=== PATIENT | female | born 1965 | race Two or more races ===

== ENCOUNTER 2021-10-01 12:39 | Inpatient (IN) | payer OTHER, SELFPAY ==
--- NOTE | 2021-10-01 | ECG_ITS ---
Test Reason : CP Blood Pressure : / mmHG Vent. Rate : 066 BPM Atrial Rate : 066 BPM P-R Int : 188 ms QRS Dur : 086 ms QT Int : 420 ms P-R-T Axes : 065 -02 030 degrees QTc Int : 440 ms Normal sinus rhythm RSR' or QR pattern in V1 suggests right ventricular conduction delay Otherwise normal ECG No previous ECGs available Referred By: Generic ED Physician Electronically Signed By:BASILIA WEBBER MD
--- NOTE | ~2021-10-01 | MR_ITS ---
EXAMINATION: MR ABDOMEN WITHOUT CONTRAST/MRCP CLINICAL INFORMATION: Abdominal pain, elevated LFTs. Rule out common bile duct stone. COMPARISON: Abdominal ultrasound performed earlier today at 8:[address] abdomen/pelvis dated from 10/01/2021. TECHNIQUE: MR abdomen is performed without gadolinium contrast. 3-D MRCP images were also performed. FINDINGS: LUNG BASES: The visualized lung bases are unremarkable. LIVER, GALLBLADDER, AND BILIARY TREE: There is loss of signal of the liver parenchyma in the out of phase dual echo images, most consistent with hepatic steatosis. Otherwise, the liver is normal in size and shape without focal abnormalities. The CBD is mildly dilated measuring up to 8 mm which is likely related with post cholecystectomy state. There are no intraluminal abnormalities to suspect choledocholithiasis. There is no evidence of obstructive extraluminal lesions. There is no significant intrahepatic biliary ductal dilatation. PANCREAS: No focal lesions. The main pancreatic duct is of normal diameter. SPLEEN: Unremarkable. ADRENAL GLANDS: Unremarkable. KIDNEYS AND URETERS: The kidneys are normal in size and shape. No hydronephrosis. No perinephric stranding. GASTROINTESTINAL TRACT: No bowel obstruction. No ascites or fluid collection. ABDOMINAL WALL: No significant hernia is appreciated. LYMPH NODES: No lymphadenopathy. VASCULAR: Limitedly assessed in the absence of intravenous contrast. The abdominal aorta is of normal diameter. OSSEOUS STRUCTURES: No acute or aggressive osseous abnormalities. MR/MR MRCP IMPRESSION: Mildly dilated CBD is likely related with post cholecystectomy state. No intrahepatic biliary ductal dilatation. No choledocholithiasis or obstructive extraluminal lesions.
--- NOTE | ~2021-10-01 | XR_ITS ---
EXAMINATION: XR CHEST CLINICAL INFORMATION: Chest pain COMPARISON: None TECHNIQUE: Frontal view of the chest was obtained. FINDINGS: No significant abnormality is noted involving the heart, lungs, mediastinum, bony thorax or soft tissues. XR/XR chest 1V IMPRESSION: Unremarkable examination.
--- NOTE | ~2021-10-01 | US_ITS ---
EXAMINATION: US ABDOMEN LIMITED. Duplex Doppler evaluation of the portal/hepatic veins. CLINICAL INFORMATION: Elevated LFTs with abdominal pain. COMPARISON: CT of October 01, 2021 and abdominal ultrasound of October 01, 2021 TECHNIQUE: Real-time imaging of the right upper quadrant abdominal viscera. Real-time ultrasound and Doppler techniques (integrating B-mode 2D vascular images, Doppler spectral analysis and color flow Doppler imaging) were utilized to interrogate the portal venous system FINDINGS: PANCREAS: Head and body unremarkable. Tail is partially obscured by overlying bowel gas. No mass or peripancreatic inflammatory change identified. LIVER: The liver is prominent in size measuring approximately 18 cm in vertical span. There is diffusely increased echogenicity present consistent with fatty infiltration. The liver contour is normal. No focal hepatic lesion. There is no intrahepatic biliary duct dilatation seen. GALLBLADDER: Status post cholecystectomy. COMMON BILE DUCT: Normal in caliber measuring 0.8 cm in diameter. RIGHT KIDNEY: Normal. No hydronephrosis. No renal calculi or focal parenchymal lesions. The kidney measures 11.4 cm in maximum dimension. FREE FLUID: None. Portal veins: Extrahepatic portal vein has hepatopedal flow. Main hepatic vein has hepatopedal flow. Right portal vein has hepatopedal flow. Left portal vein has hepatopedal flow. Hepatic artery: Main hepatic artery has antegrade flow. Right hepatic vein has antegrade flow. Left hepatic vein has antegrade flow. Hepatic veins: Main hepatic vein appears normal. Left hepatic vein appears normal. Right hepatic vein appears normal. Inferior vena cava waveform is normal. Spleen measures 9.2 cm in vertical span. The splenic vein is patent. No varices are appreciated. US/US abdomen limited IMPRESSION: Findings consistent with fatty infiltration of the liver. No evidence of portal vein thrombosis or Budd-Chiari.
--- NOTE | ~2021-10-01 | US_ITS ---
EXAMINATION: US ABDOMEN LIMITED. Duplex Doppler evaluation of the portal/hepatic veins. CLINICAL INFORMATION: Elevated LFTs with abdominal pain. COMPARISON: CT of October 01, 2021 and abdominal ultrasound of October 01, 2021 TECHNIQUE: Real-time imaging of the right upper quadrant abdominal viscera. Real-time ultrasound and Doppler techniques (integrating B-mode 2D vascular images, Doppler spectral analysis and color flow Doppler imaging) were utilized to interrogate the portal venous system FINDINGS: PANCREAS: Head and body unremarkable. Tail is partially obscured by overlying bowel gas. No mass or peripancreatic inflammatory change identified. LIVER: The liver is prominent in size measuring approximately 18 cm in vertical span. There is diffusely increased echogenicity present consistent with fatty infiltration. The liver contour is normal. No focal hepatic lesion. There is no intrahepatic biliary duct dilatation seen. GALLBLADDER: Status post cholecystectomy. COMMON BILE DUCT: Normal in caliber measuring 0.8 cm in diameter. RIGHT KIDNEY: Normal. No hydronephrosis. No renal calculi or focal parenchymal lesions. The kidney measures 11.4 cm in maximum dimension. FREE FLUID: None. Portal veins: Extrahepatic portal vein has hepatopedal flow. Main hepatic vein has hepatopedal flow. Right portal vein has hepatopedal flow. Left portal vein has hepatopedal flow. Hepatic artery: Main hepatic artery has antegrade flow. Right hepatic vein has antegrade flow. Left hepatic vein has antegrade flow. Hepatic veins: Main hepatic vein appears normal. Left hepatic vein appears normal. Right hepatic vein appears normal. Inferior vena cava waveform is normal. Spleen measures 9.2 cm in vertical span. The splenic vein is patent. No varices are appreciated. US/US duplex arterial venous comp IMPRESSION: Findings consistent with fatty infiltration of the liver. No evidence of portal vein thrombosis or Budd-Chiari.
--- NOTE | ~2021-10-01 | US_ITS ---
EXAMINATION: US ABDOMEN LIMITED CLINICAL INFORMATION: Epigastric pain. COMPARISON: None TECHNIQUE: Real-time imaging of the right upper quadrant abdominal viscera. FINDINGS: PANCREAS: The visualized portion of the pancreas head and body are normal, portion of the pancreatic body and tail, not visualized are obscured by bowel gas. LIVER: Diffusely echogenic liver suggesting hepatic steatosis, no ultrasound evidence of focal liver lesion. No intra or extrahepatic biliary dilatation. GALLBLADDER: Gallbladder has been removed. COMMON BILE DUCT: Normal in caliber measuring 0.3 cm in diameter. RIGHT KIDNEY: Normal. No hydronephrosis. No renal calculi or focal parenchymal lesions. The kidney measures 11.1 cm in maximum dimension. FREE FLUID: None. US/US abdomen limited IMPRESSION: Exam somewhat limited due to patient's body habitus. No abdominal ultrasound explanation for patient's pain symptoms, Status post cholecystectomy. Diffusely echogenic liver suggesting hepatic steatosis.
--- NOTE | ~2021-10-01 | CT_ITS ---
EXAMINATION: CT ABDOMEN AND PELVIS WITH CONTRAST CLINICAL INFORMATION: Epigastric pain, nausea and vomiting COMPARISON: None TECHNIQUE: Multidetector volumetric images were obtained from the superior aspect of the liver through the pubic symphysis following administration 85 mL of Omnipaque 350 intravenous contrast. Sagittal and coronal reformatted images were obtained on the technologist's workstation. Oral contrast: No This CT examination was performed using dose optimization techniques as appropriate, variously including the following: *Automated exposure control *Adjustment of mA and/or kV according to patient size (this includes techniques or standardized protocols for targeted exams where dose is matched to indication/reason for exam; i.e. extremities or head) *Use of iterative reconstruction technique DLP: 686 mGy-cm FINDINGS: LUNG BASES: The visualized lung bases are clear. The heart is upper normal in size. LIVER, GALLBLADDER, AND BILIARY TREE: The liver is low in attenuation suggestive of fatty infiltration. No focal lesion is seen. The gallbladder is been removed. There is no biliary duct dilatation. PANCREAS: Unremarkable. SPLEEN: Unremarkable. ADRENAL GLANDS: Unremarkable. KIDNEYS AND URETERS: The kidneys are normal in size, shape, and attenuation. No hydronephrosis, hydroureter, or calculi seen. There is a small 5 mm low-attenuation lesion right lobe of the liver. 2 small to definitively characterize but probably represent small cysts. Follow up indicated. BLADDER: Unremarkable. GASTROINTESTINAL TRACT: The small and large bowel are unremarkable. The appendix is not identified. No inflammatory changes are seen in the right lower quadrant. ABDOMINAL WALL: No significant hernia is appreciated. LYMPH NODES: Normal. VASCULAR: The uterus is enlarged. There is question of a large fibroid in the uterine fundus. The adnexa are unremarkable. PELVIC VISCERA: Unremarkable. OSSEOUS STRUCTURES: Unremarkable. CT/CT abdomen pelvis w con IMPRESSION: Enlarged uterus and probable fundal uterine fibroid. This could be better evaluated with pelvic ultrasound. Fatty liver. Otherwise normal exam.
[2021-10-01 13:17] VITALS: BP 139/79; PULSE 77; RESP 18; TEMP 36.5; O2SAT 98; BMI 35.4
--- NOTE | 2021-10-01 14:21 | ED.CHESTPAIN ---
HPI - Chest Pain General Chief Complaint: Chest Pain Stated Complaint: low blood pressure, chest & abd pain Time Seen by Provider: 10/01/21 14:21 Source: patient and family Mode of arrival: ambulatory Limitations: no limitations History of Present Illness HPI narrative: 56 yo female with HTN notes around 10am she developed epigastric pain with n/v that felt like pressure which radiated to her chest - she sat in [facility] all morning then came here when the pain worsened. She was up all night urinating frequently. No prior episodes of this in the past. Her BP was also below 100 but she cannot state they exact number and her BP was not told to be low at [facility] complaint: chest pain (abdominal pain) Onset (ago): hour(s) (4) Prior episodes: No Onset: during rest Pain location: epigastric Pain radiation: other (chest) Severity: moderate Quality: other (pressure) Relieving factors: nothing Exacerbating factors: eating and palpation Associated symptoms: nausea and vomiting Treatment prior to arrival: none Related Data Home Medications Medication Instructions Recorded Confirmed amlodipine 5 mg tablet 1 tab PO DAILY 10/01/21 10/01/21 calcium carbonate 600 mg calcium 600 mg PO DAILY 10/01/21 10/01/21 (1,500 mg) tablet (Calcium) cholecalciferol (vitamin D3) 25 25 mcg PO DAILY 10/01/21 10/01/21 mcg (1,000 unit) chewable tablet (Vitamin D3) cyanocobalamin (vitamin B-12) 1,000 mcg PO DAILY 10/01/21 10/01/21 1,000 mcg tablet omeprazole 20 mg capsule,delayed 1 cap PO DAILY 10/01/21 10/01/21 release Allergies Allergy/AdvReac Type Severity Reaction Status Date / Time No Known Allergies Allergy Verified 10/01/21 14:32 Review of Systems Review of Systems: Constitutional : No Weight loss, No Fever, No Chills ENT/Mouth : No sore throat, No Rhinorrhea Eyes: No Swelling, No Redness Cardiovascular : pos Chest Pain, No SOB, NoEdema Respiratory : No Cough, No Sputum, No Wheezing Gastrointestinal : Positive Nausea, Positive Vomiting, no Diarrhea, positive abdominal Pain, No Hematochezia, No Melena Genitourinary : pos Dysuria, pos Urinary Frequency, No Hematuria, No Urgency Musculoskeletal : No joint pain, No Myalgias, No Joint Swelling Skin : No Skin Lesions, No rash Neuro : No Weakness, No Numbness, No Dizziness, No Headache Psych : No Anxiety/Panic, No Depression Heme/Lymph: No Bruising, No Lymphadenopathy Endocrine : No Polyuria, No Polydipsia All other systems reviewed and are negative. [facility] Past Medical History Attestation statement: The following information was validated with the patient. Medical History HTN (hypertension) Surgical History (Updated 10/01/21 @ 14:51 by Mechelle Vargas DO) H/O section History of appendectomy Hx of cholecystectomy Social History Social History (Updated 10/01/21 @ 14:51 by Mechelle Vargas DO) Patient Tobacco Use Status: Never used Tobacco Smoked in Last 30 Days: No Use of substances other than those prescribed or required for medical reasons: No Advance Directives: No Advance Directives Information Provided: Yes Physical Exam Vital Signs: Vital Signs: Last Vital Signs Temp 98.6 F 10/01/21 19:22 Pulse 57 10/01/21 19:22 Resp 18 10/01/21 19:22 BP 134/69 10/01/21 19:22 Pulse Ox 98 10/01/21 19:22 Body Mass Index 35.4 Appearance: Alert. Oriented X3. No acute distress. Eyes: Pupils equal, round and reactive to light. ENT: Pharynx normal. Neck: Normal inspection. Neck supple. CVS: Normal heart rate and rhythm. Pulses normal. Chest: ttp along sternum reproduces pain Respiratory: No respiratory distress. Breath sounds normal. Abdomen: Soft and moderate epigastric ttp no rebound or guarding Skin: Skin warm and dry. Normal skin color. Normal skin turgor. Extremities: No lower extremity edema. No calf ttp Neuro: Oriented X 3. No motor deficit. No sensory deficit. Course Course Course Narrative: given rise in LFTs ? passed stone message sent to GI, hepatitis panel sent off, planned admit repeat LFTs 830 coags if stable / improved can DC home per Dr. Napoles since symptoms improved hospitalist aware of possible admission will PO trial patient LFTs increased, will admit for further workup, GI aware, tylenol sent off, no tylenol ingestion - symptoms all started with pain MDM - Chest Pain MDM Narrative Medical decision making narrative: 56 yo female with HTN hx of appendectomy/cholecystectomy comes in with c/o 4 hours of epigastric pain radiating to chest with n/v - no prior episodes of this in the past. At this time labs, CXR, EKG, troponin, IV morphine for pain, CT scan for pancreatitis/mass. Dispo per results and findings. Lab Data Result diagrams: 10/01/21 14:50 10/01/21 14:50 Labs: Lab Results 10/01/21 10/01/21 10/01/21 Range/Units 14:49 14:50 14:50 WBC 12.4 H (4.8-10.8) X10*3/uL RBC 4.85 (4.20-5.50) X10*6/uL Hgb 14.0 (12.0-16.0) g/dl Hct 42.8 (37.0-47.0) % MCV 88.2 (80.0-98.0) fL MCH 28.9 (27.0-33.0) pg MCHC 32.7 (31.0-35.0) g/dl RDW 13.3 (11.0-16.0) % Plt Count 186 (160-400) X10*3/uL MPV 11.6 (9.4-12.3) fL Immature Gran % (Auto) 0.3 (0.0-0.4) % Neut % (Auto) 86.4 H (45-73) % Lymph % (Auto) 8.5 L (20-40) % Christian % (Auto) 4.5 (2-11) % Eos % (Auto) 0.1 (0-4) % Baso % (Auto) 0.2 (0-2) % Lymph # (Auto) 1.1 L (1.2-4.9) X10*3/uL Christian # (Auto) 0.6 (0.1-1.2) X10*3/uL Eos # (Auto) 0.0 (0.0-0.4) X10*3/uL Baso # (Auto) 0.0 (0.0-0.2) X10*3/uL Abs Immat Gran (auto) 0.04 H (0.00-0.03) X10*3/uL Absolute Neuts (auto) 10.67 H (2.0-8.3) x10*3/uL Absolute Nucleated RBC 0.000 (0.0-0.012) X10*3/uL Nucleated RBC % (auto) 0.0 (0.0-0.2) /100WBC Sodium 139 (135-145) mmol/L Potassium 4.0 (3.3-5.1) mmol/L Chloride 103 (96-108) mmol/L Carbon Dioxide 29 (22-29) mmol/L Anion Gap 11 L (12-20) BUN 10 (9-16) mg/dL Creatinine 0.80 (0.5-1.4) mg/dL Estim Creat Clear Calc 85.9 Estimated GFR > 60 Random Glucose 140 H (60-115) mg/dL Lactic Acid (0.5-2.0) mmol/L Calcium 9.5 (8.4-10.2) mg/dL Magnesium 2.2 (1.6-2.6) mg/dL Total Bilirubin 0.9 (0.0-1.0) mg/dL Direct Bilirubin 0.6 H (0.0-0.5) mg/dL AST 421 H (5-31) U/L ALT 304 H (0-31) U/L Alkaline Phosphatase 126 H (39-117) U/L Troponin I High Sens (<3.5-17.0) ng/L Total Protein 7.8 (6.5-8.0) g/dL Albumin 4.6 (3.5-5.0) g/dL Lipase 24 (8-78) U/L Urine Color Urine Appearance Urine pH (5.0-8.0) Ur Specific [place] (1.005-1.025) Urine Protein (NEG-TRACE) MG/DL Urine Glucose (UA) (NEG) MG/DL Urine Ketones (NEG) MG/DL Urine Blood (NEG) Urine Nitrite (NEG) Ur Leukocyte Esterase (NEG) COVID-19 (LAURITA) Negative (Negative) COVID-19 Clin Com See Note 10/01/21 10/01/21 10/01/21 Range/Units 14:50 14:50 17:32 WBC (4.8-10.8) X10*3/uL RBC (4.20-5.50) X10*6/uL Hgb (12.0-16.0) g/dl Hct (37.0-47.0) % MCV (80.0-98.0) fL MCH (27.0-33.0) pg MCHC (31.0-35.0) g/dl RDW (11.0-16.0) % Plt Count (160-400) X10*3/uL MPV (9.4-12.3) fL Immature Gran % (Auto) (0.0-0.4) % Neut % (Auto) (45-73) % Lymph % (Auto) (20-40) % Christian % (Auto) (2-11) % Eos % (Auto) (0-4) % Baso % (Auto) (0-2) % Lymph # (Auto) (1.2-4.9) X10*3/uL Christian # (Auto) (0.1-1.2) X10*3/uL Eos # (Auto) (0.0-0.4) X10*3/uL Baso # (Auto) (0.0-0.2) X10*3/uL Abs Immat Gran (auto) (0.00-0.03) X10*3/uL Absolute Neuts (auto) (2.0-8.3) x10*3/uL Absolute Nucleated RBC (0.0-0.012) X10*3/uL Nucleated RBC % (auto) (0.0-0.2) /100WBC Sodium (135-145) mmol/L Potassium (3.3-5.1) mmol/L Chloride (96-108) mmol/L Carbon Dioxide (22-29) mmol/L Anion Gap (12-20) BUN (9-16) mg/dL Creatinine (0.5-1.4) mg/dL Estim Creat Clear Calc Estimated GFR Random Glucose (60-115) mg/dL Lactic Acid 1.1 (0.5-2.0) mmol/L Calcium (8.4-10.2) mg/dL Magnesium (1.6-2.6) mg/dL Total Bilirubin 0.8 (0.0-1.0) mg/dL Direct Bilirubin 0.6 H (0.0-0.5) mg/dL AST 784 H (5-31) U/L ALT 649 H (0-31) U/L Alkaline Phosphatase 127 H (39-117) U/L Troponin I High Sens < 3.5 (<3.5-17.0) ng/L Total Protein 7.2 (6.5-8.0) g/dL Albumin 4.1 (3.5-5.0) g/dL Lipase (8-78) U/L Urine Color Urine Appearance Urine pH (5.0-8.0) Ur Specific [place] (1.005-1.025) Urine Protein (NEG-TRACE) MG/DL Urine Glucose (UA) (NEG) MG/DL Urine Ketones (NEG) MG/DL Urine Blood (NEG) Urine Nitrite (NEG) Ur Leukocyte Esterase (NEG) COVID-19 (LAURITA) (Negative) COVID-19 Clin Com 10/01/21 10/01/21 Range/Units 18:34 20:29 WBC (4.8-10.8) X10*3/uL RBC (4.20-5.50) X10*6/uL Hgb (12.0-16.0) g/dl Hct (37.0-47.0) % MCV (80.0-98.0) fL MCH (27.0-33.0) pg MCHC (31.0-35.0) g/dl RDW (11.0-16.0) % Plt Count (160-400) X10*3/uL MPV (9.4-12.3) fL Immature Gran % (Auto) (0.0-0.4) % Neut % (Auto) (45-73) % Lymph % (Auto) (20-40) % Christian % (Auto) (2-11) % Eos % (Auto) (0-4) % Baso % (Auto) (0-2) % Lymph # (Auto) (1.2-4.9) X10*3/uL Christian # (Auto) (0.1-1.2) X10*3/uL Eos # (Auto) (0.0-0.4) X10*3/uL Baso # (Auto) (0.0-0.2) X10*3/uL Abs Immat Gran (auto) (0.00-0.03) X10*3/uL Absolute Neuts (auto) (2.0-8.3) x10*3/uL Absolute Nucleated RBC (0.0-0.012) X10*3/uL Nucleated RBC % (auto) (0.0-0.2) /100WBC Sodium (135-145) mmol/L Potassium (3.3-5.1) mmol/L Chloride (96-108) mmol/L Carbon Dioxide (22-29) mmol/L Anion Gap (12-20) BUN (9-16) mg/dL Creatinine (0.5-1.4) mg/dL Estim Creat Clear Calc Estimated GFR Random Glucose (60-115) mg/dL Lactic Acid (0.5-2.0) mmol/L Calcium (8.4-10.2) mg/dL Magnesium (1.6-2.6) mg/dL Total Bilirubin 0.9 (0.0-1.0) mg/dL Direct Bilirubin 0.6 H (0.0-0.5) mg/dL AST 1012 H (5-31) U/L ALT 936 H (0-31) U/L Alkaline Phosphatase 142 H (39-117) U/L Troponin I High Sens (<3.5-17.0) ng/L Total Protein 7.1 (6.5-8.0) g/dL Albumin 4.3 (3.5-5.0) g/dL Lipase (8-78) U/L Urine Color YELLOW Urine Appearance CLEAR Urine pH 6.5 (5.0-8.0) Ur Specific [place] 1.010 (1.005-1.025) Urine Protein NEG (NEG-TRACE) MG/DL Urine Glucose (UA) NEG (NEG) MG/DL Urine Ketones NEG (NEG) MG/DL Urine Blood NEG (NEG) Urine Nitrite NEG (NEG) Ur Leukocyte Esterase NEG (NEG) COVID-19 (LAURITA) (Negative) COVID-19 Clin Com ECG Data ECG #1: Attestation: I personally reviewed and interpreted this ECG as follows: ECG interpretation date: 10/01/21 ECG interpretation time: 14:22 Interpretation: Rate: 66 Rhythm: NSR [place]: normal Normal P waves. Normal ELEANOR. Normal QRS complex. ST T wave : normal no SAMIA qTC: normal prior studies: no acute ischemia The study has been interpreted contemporaneously by me. . Discharge Plan Discharge Clinical Impression: Abdominal pain, Elevated liver function tests, Vomiting Patient Disposition: Admitted As Inpatient Prescriptions: No Action cyanocobalamin (vitamin B-12) 1,000 mcg Tablet 1,000 mcg PO DAILY RF: 0 amlodipine 5 mg tablet 1 tab PO DAILY RF: 0 calcium carbonate [Calcium 600] 600 mg calcium (1,500 mg) Tablet 600 mg PO DAILY RF: 0 omeprazole 20 mg capsule,delayed release(DR/EC) 1 cap PO DAILY RF: 0 cholecalciferol (vitamin D3) [Vitamin D3] 25 mcg (1,000 unit) Tablet,Chewable 25 mcg PO DAILY RF: 0
[2021-10-01 14:41] VITALS: BP 111/61; PULSE 65; RESP 14; O2SAT 99
[2021-10-01] MEDS: 0.9 % Sodium Chloride 1,000 ML 999 ML IVCONT (14:56)
[2021-10-01] MEDS: Famotidine/PF 20 MG/2 ML VIAL IVPUSH (14:56)
[2021-10-01] MEDS: ondansetron HCL 4 MG/2 ML VIAL IVPUSH (14:56)
[2021-10-01] MEDS: Morphine Sulfate 4 MG/ML CARTRIDGE IVPUSH (14:56)
[2021-10-01 14:59] LABS: MANUAL DIFF FLAG NO
[2021-10-01 15:02] LABS: Basophils Percent Auto 0.2 % (0-2); Eosinophils Percent Auto 0.1 % (0-4); Hematocrit 42.8 % (37.0-47.0); Imm Gran Abs Auto 0.04 X10*3/uL (0.00-0.03); Imm Gran Pct Auto 0.3 % (0.0-0.4); Lymphocytes Absolute Auto 1.1 X10*3/uL (1.2-4.9); Lymphocytes Percent Auto 8.5 % (20-40); Mean Corpuscular HGB Conc 32.7 g/dl (31.0-35.0); Mean Corpuscular Hemoglobin 28.9 pg (27.0-33.0); Mean Corpuscular Volume 88.2 fL (80.0-98.0); Mean Platelet Volume 11.6 fL (9.4-12.3); Monocytes Absolute Auto 0.6 X10*3/uL (0.1-1.2); Monocytes Percent Auto 4.5 % (2-11); Neutrophils Absolute Auto 10.67 x10*3/uL (2.0-8.3); Neutrophils Percent Auto 86.4 % (45-73); Platelet Count 186 X10*3/uL (160-400); Red Blood Count 4.85 X10*6/uL (4.20-5.50); Red Cell Distribution Width 13.3 % (11.0-16.0); White Blood Count 12.4 X10*3/uL (4.8-10.8)
[2021-10-01 15:11] LABS: Lactic Acid 1.1 mmol/L (0.5-2.0)
[2021-10-01 15:19] LABS: Alanine Aminotransferase 304 U/L (0-31); Albumin Level 4.6 g/dL (3.5-5.0); Alkaline Phosphatase 126 U/L (39-117); Anion Gap 11 (12-20); Aspartate Amino Transferase 421 U/L (5-31); Bilirubin Direct 0.6 mg/dL (0.0-0.5); Bilirubin Total 0.9 mg/dL (0.0-1.0); Blood Urea Nitrogen 10 mg/dL (9-16); Calcium 9.5 mg/dL (8.4-10.2); Carbon Dioxide 29 mmol/L (22-29); Chloride 103 mmol/L (96-108); Creatinine Clr Calc Pharmacy 85.9; Estimated Glomerular Filt Rate > 60; Glucose Random 140 mg/dL (60-115); Lipase 24 U/L (8-78); Magnesium 2.2 mg/dL (1.6-2.6); Sodium 139 mmol/L (135-145); Total Protein 7.8 g/dL (6.5-8.0)
[2021-10-01 15:21] LABS: Troponin-I High Sensitivity < 3.5 ng/L (<3.5-17.0)
[2021-10-01 15:23] LABS: COVID-19 Test Negative (Negative); IDNOW Serial# 9DD0AD1C
--- NOTE | 2021-10-01 15:45 | ECG_ITS ---
Test Reason : CHEST PAIN Blood Pressure : / mmHG Vent. Rate : 059 BPM Atrial Rate : 059 BPM P-R Int : 180 ms QRS Dur : 086 ms QT Int : 430 ms P-R-T Axes : 045 -02 033 degrees QTc Int : 425 ms Sinus bradycardia RSR' or QR pattern in V1 suggests right ventricular conduction delay Otherwise normal ECG When compared with ECG of 01-OCT-2021 13:26, No significant change was found Referred By: Generic ED Physician Electronically Signed By:BASILIA WEBBER MD
[2021-10-01 15:56] VITALS: BP 126/64; PULSE 62; RESP 20; TEMP 36.6; O2SAT 98
[2021-10-01] MEDS: iohexoL 350 MG/ML 100 ML INFUS..BTL IV (16:20)
[2021-10-01 17:28] VITALS: BP 125/66; PULSE 58; RESP 16; TEMP 36.7; O2SAT 96
[2021-10-01 18:37] LABS: Alanine Aminotransferase 649 U/L (0-31); Albumin Level 4.1 g/dL (3.5-5.0); Alkaline Phosphatase 127 U/L (39-117); Aspartate Amino Transferase 784 U/L (5-31); Bilirubin Direct 0.6 mg/dL (0.0-0.5); Bilirubin Total 0.8 mg/dL (0.0-1.0); Total Protein 7.2 g/dL (6.5-8.0)
[2021-10-01 18:39] LABS: Appearance Urine CLEAR; Color Urine YELLOW; Glucose Urine UA NEG (NEG); Leukocyte Esterase Urine NEG (NEG); Nitrite Urine NEG (NEG); PH 6.5 (5.0-8.0); Urine Blood NEG (NEG); Urine Ketones NEG (NEG); Urine Protein NEG (NEG-TRACE)
[2021-10-01 19:22] VITALS: BP 134/69; PULSE 57; RESP 18; TEMP 37; O2SAT 98
--- NOTE | 2021-10-01 19:22 | PHA.MEDREC ---
Pharmacy Consult ? Medication Reconciliation Pharmacy has completed the medication reconciliation. there are no remarkable issues for provider's attention. Patient no longer takes cetirizine. Darlene Mills, PharmD
--- NOTE | 2021-10-01 19:40 | PC.NURSE ---
RN assumed care at 1900. Pt alert and oriented x4, calm and cooperative. Pt denies pain at this time. Pt drinking roque seth and tolerating well at this time, denies N/V. Pt denies chest pain. IV intact. Vitals remain stable. Pt resting in stretcher at this time, waiting for re-draw of blood work at 2030 per MD orders. Will continue to monitor.
[2021-10-01 20:58] LABS: Alanine Aminotransferase 936 U/L (0-31); Albumin Level 4.3 g/dL (3.5-5.0); Alkaline Phosphatase 142 U/L (39-117); Aspartate Amino Transferase 1012 U/L (5-31); Bilirubin Direct 0.6 mg/dL (0.0-0.5); Bilirubin Total 0.9 mg/dL (0.0-1.0); Total Protein 7.1 g/dL (6.5-8.0)
[2021-10-01 21:01] LABS: INTERNATIONAL NORM RATIO 1.1 (0.9-1.1); Prothrombin Time 12.8 SEC (9.9-13.0)
[2021-10-01 21:04] LABS: Partial Thromboplastin Time 29.5 SEC (24.1-38.0)
[2021-10-01 22:34] LABS: Acetaminophen LAB < 1 mcg/mL (<30)
--- NOTE | 2021-10-01 23:10 | PM.EVENT ---
Event Note Date of Service: 10/01/21 Event Note: GI-Consult received-Patient will be seen on 10/02 Case D/W Dr. Vargas and chart reviewed Apparent case of acute abdominal pain and acute hepatitis-? etiology-no signs of liver failure with normal TBili and PT/INR Check autoimmune markers, viral serologies, Doppler U/S of abdomen to R/O portal vein thrombosis/Budd Chiari, and MRCP to R/O unlikely possibility of biliary obstruction. Follow up labs in AM. Will consider liver biopsy if workup remains negative and the situation persist or worsens in regard to her labs. Supportive care. Thanks
[2021-10-02] VITALS: BP 124/65; PULSE 59; RESP 18; TEMP 37; O2SAT 96
[2021-10-02] LABS: Ammonia 60 umol/L (13-55)
[2021-10-02] MEDS: 0.9 % Sodium Chloride Flush 3 ML SYRINGE IVFLUSH (00:27)
[2021-10-02] MEDS: Pantoprazole Sodium 40 MG/10 ML VIAL IVPUSH ×3 (00:27→16:56)
[2021-10-02] MEDS: Lactated Ringers 1,000 ML 125 ML IVCONT ×3 (00:38→13:58)
[2021-10-02 00:49] LABS: Salicylate < 5.0 mg/dL (15-30)
[2021-10-02 04:00] VITALS: BP 92/51; PULSE 59; RESP 18; TEMP 37.1; O2SAT 96
[2021-10-02 04:29] LABS: HBS Num1 210.18 mIU/mL (0-7.99); HBc Num1 4.06 S/CO (0.00-0.79); HBsAGNum1 0.17 S/CO (0.00-0.99); Hepatitis B Surface Antigen Negative (Negative); ~HepC Num1 0.57 S/CO (0.00-0.79); ~Hepatitis B Surface Antibody REACTIVE (Nonreactive); ~Hepatitis C Antibody Nonreactive (Nonreactive)
[2021-10-02 04:40] LABS: HIV AB/AG Nonreactive (Nonreactive); HIV Num 1 0.07 S/CO (0.00-0.99)
[2021-10-02 05:24] LABS: HBc Num2 3.99 S/CO; HBc Num3 4.18 S/CO; Hepatitis B Core Antibody Reactive (Nonreactive)
--- NOTE | 2021-10-02 06:03 | PM.IMHP ---
History of Present Illness Date of Service: 10/01/21 Chief Complaint: Abdominal pain 56-year-old female with past medical history of HTN, who presents to the hospital with complaints of severe abdominal pain. Patient reports that her abdominal pain is localized to the epigastric region, radiating to her chest, 09/07, associated with nausea and vomiting, relieved by the pain medication received in the ED, worsened by p.o. intake, reports that the characteristics of the pain is hard to explain but is just severe pain. Patient denies any chest pain, no shortness of breath, no diarrhea, no urinary symptoms and no lower extremity edema. No fever or chills. No significant abnormal vitals Labs are significant for of 12.4, AST of 421> 784> 1012, ALT of 304> 649> 936, ammonia of 60, alk-phos of 120s Troponin negative, UA negative, ostomy no feeding and salicylate levels negative,Hepatitis panel pending Abdominal pelvic CT shows enlarged uterus and probable fundal uterine fibroid with no significant abnormalities in the liver except fatty infiltration, cholecystectomy Abdominal ultrasound shows diffuse echogenic liver suggesting hepatic steatosis Case discussed with GI, patient possibly undergoing MRCP in AM Review of Systems Review of Systems: Yes all other systems are reviewed and are negative PMFSH Medical History HTN (hypertension) Pertinent family history: Diabetes Surgical History H/O section History of appendectomy Hx of cholecystectomy Social History Patient Tobacco Use Status: Never used Tobacco Smoked in Last 30 Days: No Use of substances other than those prescribed or required for medical reasons: No Advance Directives: No Advance Directives Information Provided: Yes Meds Allergies Allergy/AdvReac Type Severity Reaction Status Date / Time No Known Allergies Allergy Verified 10/01/21 14:32 Active Medications: Current Medications Acetaminophen (Acetaminophen 325 Mg Tablet) 650 mg PO Q6H PRN PRN Reason: Pain, Mild (Pain Scale 1-3) Amlodipine Besylate (Amlodipine Besylate 5 Mg Tablet) 5 mg PO DAILY NENITA; Protocol Cyanocobalamin (Cyanocobalamin (Vitamin B-12) 1,000 Mcg Tablet) 1,000 mcg PO DAILY NENITA Lactated Ringer's (Lr) 1,000 mls @ 125 mls/hr IVCONT .Q8H [facility] Last Admin: 10/02/21 00:38 Dose: 125 mls/hr Documented by: Morphine Sulfate (Morphine Sulfate 4 Mg/Ml Cartridge) 4 mg IVPUSH Q4H PRN; Protocol PRN Reason: Pain, Severe (Pain Scale 7-10) Ondansetron HCl (Ondansetron Hcl 4 Mg/2 Ml Vial) 4 mg IVPUSH Q8H PRN PRN Reason: Nausea and Vomiting Pantoprazole Sodium (Pantoprazole Sodium 40 Mg/10 Ml Vial) 40 mg IVPUSH BID@0630,1630 [facility] Last Admin: 10/02/21 00:27 Dose: 40 mg Documented by: Pharmacy Consult (Consult Rx Perform Med Rec) 1 each MISCELLANE ONCE PRN PRN Reason: Consult order Sodium Chloride (0.9 % Sodium Chloride Flush 3 Ml Syringe) 3 ml IVFLUSH QSHIFT [facility] Last Admin: 10/02/21 00:27 Dose: 3 ml Documented by: Home Medications Medication Instructions Recorded Confirmed Last Taken Type amlodipine 5 mg tablet 1 tab PO DAILY 10/01/21 10/01/21 10/01/21 History calcium carbonate 600 mg calcium 600 mg PO DAILY 10/01/21 10/01/21 10/01/21 History (1,500 mg) tablet (Calcium) cholecalciferol (vitamin D3) 25 25 mcg PO DAILY 10/01/21 10/01/21 Unknown History mcg (1,000 unit) chewable tablet (Vitamin D3) cyanocobalamin (vitamin B-12) 1,000 mcg PO DAILY 10/01/21 10/01/21 Unknown History 1,000 mcg tablet omeprazole 20 mg capsule,delayed 1 cap PO DAILY 10/01/21 10/01/21 10/01/21 History release Physical Exam Vital Signs and Narrative: Vital Signs: Last Vital Signs Temp 98.7 F 10/02/21 04:00 Pulse 59 10/02/21 04:00 Resp 18 10/02/21 04:00 BP 92/51 L 10/02/21 04:00 Pulse Ox 96 10/02/21 04:00 Body Mass Index 35.4 Const: General: cooperative and no acute distress Orientation/consciousness: patient oriented x3 Eyes: General: appearance normal, both eyes and all related structures Resp: Effort & Inspection: normal respiratory effort Auscultation: clear to auscultation bilaterally Cardio: Rate: regular rate Rhythm: regular rhythm GI: Other: Epigastric tenderness No rebound no guarding Palpation (GI): Soft to palpation Auscultation: normal bowel sounds Skin: General skin exam: no rashes or lesions noted Neuro: General: patient oriented x3 Cognition (Neuro): normal cognition Extrem: General: Yes normal to inspection and Yes no pedal edema Results Labs CBC and Chem 7: 10/01/21 14:50 10/01/21 14:50 Labs: Laboratory Results - last 24 hr 10/01/21 10/01/21 10/01/21 14:49 14:50 14:50 MCV 88.2 MCH 28.9 MCHC 32.7 RDW 13.3 Plt Count 186 MPV 11.6 Immature Gran % (Auto) 0.3 Neut % (Auto) 86.4 H Lymph % (Auto) 8.5 L [place] % (Auto) 4.5 Eos % (Auto) 0.1 Baso % (Auto) 0.2 Lymph # (Auto) 1.1 L [place] # (Auto) 0.6 Eos # (Auto) 0.0 Baso # (Auto) 0.0 Abs Immat Gran (auto) 0.04 H Absolute Neuts (auto) 10.67 H Absolute Nucleated RBC 0.000 Nucleated RBC % (auto) 0.0 PT INR APTT Anion Gap 11 L Estim Creat Clear Calc 85.9 Estimated GFR > 60 Random Glucose 140 H Lactic Acid Calcium 9.5 Magnesium 2.2 Total Bilirubin 0.9 Direct Bilirubin 0.6 H AST 421 H ALT 304 H Alkaline Phosphatase 126 H Ammonia Troponin I High Sens Total Protein 7.8 Albumin 4.6 Lipase 24 Urine Color Urine Appearance Urine pH Ur Specific [place] Urine Protein Urine Glucose (UA) Urine Ketones Urine Blood Urine Nitrite Ur Leukocyte Esterase Salicylates Acetaminophen COVID-19 (LAURITA) Negative COVID-19 Clin Com See Note Hep Bs Antigen Hep Bs Antibody Hep B Core Total Ab Hep B Core IgM Ab Hepatitis C Ab (EIA) HIV 1&2 Ab/P24 Ag 4thGn 10/01/21 10/01/21 10/01/21 14:50 14:50 17:32 MCV MCH MCHC RDW Plt Count MPV Immature Gran % (Auto) Neut % (Auto) Lymph % (Auto) [place] % (Auto) Eos % (Auto) Baso % (Auto) Lymph # (Auto) [place] # (Auto) Eos # (Auto) Baso # (Auto) Abs Immat Gran (auto) Absolute Neuts (auto) Absolute Nucleated RBC Nucleated RBC % (auto) PT INR APTT Anion Gap Estim Creat Clear Calc Estimated GFR Random Glucose Lactic Acid 1.1 Calcium Magnesium Total Bilirubin 0.8 Direct Bilirubin 0.6 H AST 784 H ALT 649 H Alkaline Phosphatase 127 H Ammonia Troponin I High Sens < 3.5 Total Protein 7.2 Albumin 4.1 Lipase Urine Color Urine Appearance Urine pH Ur Specific [place] Urine Protein Urine Glucose (UA) Urine Ketones Urine Blood Urine Nitrite Ur Leukocyte Esterase Salicylates Acetaminophen COVID-19 (LAURITA) COVID-19 Clin Com Hep Bs Antigen Hep Bs Antibody Hep B Core Total Ab Hep B Core IgM Ab Hepatitis C Ab (EIA) HIV 1&2 Ab/P24 Ag 4thGn 10/01/21 10/01/21 10/01/21 17:32 18:34 20:29 MCV MCH MCHC RDW Plt Count MPV Immature Gran % (Auto) Neut % (Auto) Lymph % (Auto) [place] % (Auto) Eos % (Auto) Baso % (Auto) Lymph # (Auto) [place] # (Auto) Eos # (Auto) Baso # (Auto) Abs Immat Gran (auto) Absolute Neuts (auto) Absolute Nucleated RBC Nucleated RBC % (auto) PT 12.8 INR 1.1 APTT 29.5 Anion Gap Estim Creat Clear Calc Estimated GFR Random Glucose Lactic Acid Calcium Magnesium Total Bilirubin Direct Bilirubin AST ALT Alkaline Phosphatase Ammonia Troponin I High Sens Total Protein Albumin Lipase Urine Color YELLOW Urine Appearance CLEAR Urine pH 6.5 Ur Specific [place] 1.010 Urine Protein NEG Urine Glucose (UA) NEG Urine Ketones NEG Urine Blood NEG Urine Nitrite NEG Ur Leukocyte Esterase NEG Salicylates Acetaminophen COVID-19 (LAURITA) COVID-19 Clin Com Hep Bs Antigen Negative Hep Bs Antibody REACTIVE Hep B Core Total Ab Reactive Hep B Core IgM Ab Cancelled Hepatitis C Ab (EIA) Nonreactive HIV 1&2 Ab/P24 Ag 4thGn 10/01/21 10/01/21 10/01/21 20:29 23:41 23:41 MCV MCH MCHC RDW Plt Count MPV Immature Gran % (Auto) Neut % (Auto) Lymph % (Auto) [place] % (Auto) Eos % (Auto) Baso % (Auto) Lymph # (Auto) [place] # (Auto) Eos # (Auto) Baso # (Auto) Abs Immat Gran (auto) Absolute Neuts (auto) Absolute Nucleated RBC Nucleated RBC % (auto) PT INR APTT Anion Gap Estim Creat Clear Calc Estimated GFR Random Glucose Lactic Acid Calcium Magnesium Total Bilirubin 0.9 Direct Bilirubin 0.6 H AST 1012 H ALT 936 H Alkaline Phosphatase 142 H Ammonia 60 H Troponin I High Sens Total Protein 7.1 Albumin 4.3 Lipase Urine Color Urine Appearance Urine pH Ur Specific [place] Urine Protein Urine Glucose (UA) Urine Ketones Urine Blood Urine Nitrite Ur Leukocyte Esterase Salicylates Acetaminophen < 1 COVID-19 (LAURITA) COVID-19 Clin Com Hep Bs Antigen Hep Bs Antibody Hep B Core Total Ab Hep B Core IgM Ab Hepatitis C Ab (EIA) HIV 1&2 Ab/P24 Ag 4thGn Nonreactive 10/01/21 23:41 MCV MCH MCHC RDW Plt Count MPV Immature Gran % (Auto) Neut % (Auto) Lymph % (Auto) [place] % (Auto) Eos % (Auto) Baso % (Auto) Lymph # (Auto) [place] # (Auto) Eos # (Auto) Baso # (Auto) Abs Immat Gran (auto) Absolute Neuts (auto) Absolute Nucleated RBC Nucleated RBC % (auto) PT INR APTT Anion Gap Estim Creat Clear Calc Estimated GFR Random Glucose Lactic Acid Calcium Magnesium Total Bilirubin Direct Bilirubin AST ALT Alkaline Phosphatase Ammonia Troponin I High Sens Total Protein Albumin Lipase Urine Color Urine Appearance Urine pH Ur Specific [place] Urine Protein Urine Glucose (UA) Urine Ketones Urine Blood Urine Nitrite Ur Leukocyte Esterase Salicylates < 5.0 L Acetaminophen COVID-19 (LAURITA) COVID-19 Clin Com Hep Bs Antigen Hep Bs Antibody Hep B Core Total Ab Hep B Core IgM Ab Hepatitis C Ab (EIA) HIV 1&2 Ab/P24 Ag 4thGn Imaging Radiologist's Impressions: Impressions Abdomen/Pelvis CT 10/01/21 14:32 IMPRESSION: Enlarged uterus and probable fundal uterine fibroid. This could be better evaluated with pelvic ultrasound. Fatty liver. Otherwise normal exam. Chest X-Ray 10/01/21 14:33 IMPRESSION: Unremarkable examination. Abdomen Ultrasound 10/01/21 16:42 IMPRESSION: Exam somewhat limited due to patient's body habitus. No abdominal ultrasound explanation for patient's pain symptoms, Status post cholecystectomy. Diffusely echogenic liver suggesting hepatic steatosis. Assessment and Plan (1) Abdominal pain: Qualifiers: Abdominal location: epigastric Qualified Code(s): R10.13 - Epigastric pain Status: Acute (2) Elevated liver function tests: Status: Acute 56-year-old female with past medical history of hypertension presents to the hospital with complaints of abdominal pain found to have elevated LFTs # abdominal pain - unclear etiology - history of cholecystectomy - possibly secondary to passed gallstone - CT abdomen as well as abdominal ultrasound both revealed fatty infiltrate of the liver - pending hepatitis panel - will rule out autoimmune disease - GI consult for possible MRCP # elevated liver enzymes - acute hepatitis versus other etiology - acetaminophen as well as salicylate levels negative - pending hepatitis past as well as autoimmune disease test - GI consult - trend LFTs - IV fluid DVT prophylaxis: SCD and early ambulation Quality Stroke Does the patient have a stroke diagnosis?: No VTE Prior VTE?: No VTE Risk Level:: Medical - moderate - high VTE Device Contraindication: N/A - Device Ordered VTE Drug Contraindication: Treatment Not Indicated
[2021-10-02] MEDS: Lactated Ringers 500 ML 999 ML IV (06:52)
[2021-10-02 07:11] LABS: MANUAL DIFF FLAG NO
[2021-10-02 07:14] LABS: Basophils Percent Auto 0.4 % (0-2); Eosinophils Absolute Auto 0.2 X10*3/uL (0.0-0.4); Eosinophils Percent Auto 2.3 % (0-4); Hematocrit 38.1 % (37.0-47.0); Hemoglobin 12.4 g/dl (12.0-16.0); Imm Gran Abs Auto 0.02 X10*3/uL (0.00-0.03); Imm Gran Pct Auto 0.3 % (0.0-0.4); Lymphocytes Absolute Auto 1.5 X10*3/uL (1.2-4.9); Lymphocytes Percent Auto 22.2 % (20-40); Mean Corpuscular HGB Conc 32.5 g/dl (31.0-35.0); Mean Corpuscular Hemoglobin 28.5 pg (27.0-33.0); Mean Corpuscular Volume 87.6 fL (80.0-98.0); Mean Platelet Volume 12.2 fL (9.4-12.3); Monocytes Absolute Auto 0.5 X10*3/uL (0.1-1.2); Monocytes Percent Auto 7.7 % (2-11); Neutrophils Absolute Auto 4.58 x10*3/uL (2.0-8.3); Neutrophils Percent Auto 67.1 % (45-73); Platelet Count 160 X10*3/uL (160-400); Red Blood Count 4.35 X10*6/uL (4.20-5.50); Red Cell Distribution Width 13.4 % (11.0-16.0); White Blood Count 6.8 X10*3/uL (4.8-10.8)
[2021-10-02 07:19] LABS: INTERNATIONAL NORM RATIO 1.1 (0.9-1.1)
[2021-10-02 07:22] LABS: Lactic Acid 0.7 mmol/L (0.5-2.0)
--- NOTE | 2021-10-02 07:27 | PC.NURSE ---
this rn walked into pt room- pt eating full breakfast tray. tray taken away from pt and explained she cannot have anything to eat or drink. pt stated to pct i knew i was npo but my stomach was hurting from not eating so i ate anyway. lr hung at this time. pt aware of plan of care for admission. denied having any question.
[2021-10-02 07:39] VITALS: BP 133/72; PULSE 58
[2021-10-02] MEDS: amLODIPine Besylate 5 MG TABLET PO (07:39)
[2021-10-02] MEDS: Cyanocobalamin (Vitamin B-12) 1,000 MCG TABLET 1000 MCG PO (07:41)
[2021-10-02 08:03] LABS: Alanine Aminotransferase 746 U/L (0-31); Albumin Level 3.9 g/dL (3.5-5.0); Alkaline Phosphatase 139 U/L (39-117); Anion Gap 11 (12-20); Aspartate Amino Transferase 452 U/L (5-31); Bilirubin Total 0.7 mg/dL (0.0-1.0); Blood Urea Nitrogen 8 mg/dL (9-16); Calcium 8.6 mg/dL (8.4-10.2); Carbon Dioxide 28 mmol/L (22-29); Chloride 107 mmol/L (96-108); Creatinine Clr Calc Pharmacy 92.9; Estimated Glomerular Filt Rate > 60; Glucose Random 99 mg/dL (60-115); Potassium 3.8 mmol/L (3.3-5.1); Sodium 142 mmol/L (135-145); Total Protein 6.6 g/dL (6.5-8.0)
[2021-10-02 08:04] LABS: Alanine Aminotransferase 762 U/L (0-31); Albumin Level 3.9 g/dL (3.5-5.0); Alkaline Phosphatase 147 U/L (39-117); Aspartate Amino Transferase 464 U/L (5-31); Bilirubin Direct 0.4 mg/dL (0.0-0.5); Bilirubin Total 0.8 mg/dL (0.0-1.0); Total Protein 6.5 g/dL (6.5-8.0)
[2021-10-02 09:30] VITALS: BP 119/63; PULSE 54; RESP 14; O2SAT 95
--- NOTE | 2021-10-02 12:29 | PC.NURSE ---
pt to mri
[2021-10-02 12:40] LABS: Alanine Aminotransferase 663 U/L (0-31); Albumin Level 3.9 g/dL (3.5-5.0); Alkaline Phosphatase 139 U/L (39-117); Anion Gap 10 (12-20); Aspartate Amino Transferase 343 U/L (5-31); Bilirubin Total 0.7 mg/dL (0.0-1.0); Blood Urea Nitrogen 8 mg/dL (9-16); Calcium 8.8 mg/dL (8.4-10.2); Carbon Dioxide 29 mmol/L (22-29); Chloride 107 mmol/L (96-108); Creatinine Clr Calc Pharmacy 91.6; Estimated Glomerular Filt Rate > 60; Glucose Random 96 mg/dL (60-115); Potassium 3.8 mmol/L (3.3-5.1); Sodium 142 mmol/L (135-145); Total Protein 6.6 g/dL (6.5-8.0)
--- NOTE | 2021-10-02 17:21 | PM.EVENT ---
Event Note Date of Service: 10/02/21 Event Note: GI Consult-Full note dictated-Hx via director of graduate medical education and from EMR. Imp: Transient significant epigastric pain with associated N/V and significant elevation of her liver enzymes. This has all improved on its own within 24 hour, including improved LFT's. She presently denies any pain and is hungry. Her LFT's remain high, but definitely better than admission. Her w/u with U/S, CT, Doppler U/S of abdomen, and MRCP has been negative for any obvious signs of biliary disease. The CBD is slightly dilated but not unusual given that she is s/p CCY. Her abdominal exam is benign. Diff dx: Passed CBD stone, Sphincter of Oddi dyskinesa/spasm. Doubt viral or drug-induced hepatitis given the associated pain and clinical history. Rec: Advance diet, F/U labs in AM, D/C by 11 if tolerates diet and labs are stable. She should have a F/U liver profile by early next week. If this recurs she would probably need an ERCP for further evaluation. D/W patient in detail and she is comfortable with this plan. Thanks
[2021-10-02 18:22] LABS: Alanine Aminotransferase 625 U/L (0-31); Albumin Level 4.1 g/dL (3.5-5.0); Alkaline Phosphatase 141 U/L (39-117); Anion Gap 11 (12-20); Aspartate Amino Transferase 286 U/L (5-31); Bilirubin Total 0.7 mg/dL (0.0-1.0); Blood Urea Nitrogen 9 mg/dL (9-16); Calcium 8.7 mg/dL (8.4-10.2); Carbon Dioxide 29 mmol/L (22-29); Chloride 109 mmol/L (96-108); Creatinine Clr Calc Pharmacy 85.9; Estimated Glomerular Filt Rate > 60; Glucose Random 149 mg/dL (60-115); Potassium 3.6 mmol/L (3.3-5.1); Sodium 145 mmol/L (135-145); Total Protein 6.8 g/dL (6.5-8.0)
--- NOTE | 2021-10-02 18:23 | PC.NURSE ---
pt requesting to leave ama- provider aware
--- NOTE | 2021-10-02 18:36 | PC.NURSE ---
pt now staying- states she needs a note for work. will stay until am.
[2021-10-02 20:22] VITALS: BP 127/68; PULSE 73; TEMP 37.3; O2SAT 97
--- NOTE | 2021-10-02 20:26 | MHC.CM.PN ---
CM met with admitted patient with bed assignment pending. Pt is employed. IMM not necessary. No HCP on file. HCP reviewed, completed and signed per protocol. Copies given and uploaded into [employer] and [facility] [employer]. HCP/daughter Herbert Stewart ([phone]) and alternate HCP/daughter Ashley Stewart ([phone]). Pt. lives with and daughter. Employed. Uses no services of DME. Pt fully vaccinated with Pfizer 01/19 and 02/16. D/C plan is home without services. Transportation by family. CM to follow for d/c needs.
[2021-10-03 00:56] LABS: Alanine Aminotransferase 552 U/L (0-31); Albumin Level 4.1 g/dL (3.5-5.0); Alkaline Phosphatase 136 U/L (39-117); Anion Gap 11 (12-20); Aspartate Amino Transferase 212 U/L (5-31); Bilirubin Total 0.5 mg/dL (0.0-1.0); Blood Urea Nitrogen 9 mg/dL (9-16); Calcium 8.7 mg/dL (8.4-10.2); Carbon Dioxide 29 mmol/L (22-29); Chloride 107 mmol/L (96-108); Estimated Glomerular Filt Rate > 60; Glucose Random 93 mg/dL (60-115); Potassium 3.7 mmol/L (3.3-5.1); Sodium 143 mmol/L (135-145); Total Protein 6.9 g/dL (6.5-8.0)
[2021-10-03] MEDS: Lactated Ringers 1,000 ML 125 ML IVCONT ×2 (02:41→07:14)
--- NOTE | 2021-10-03 02:43 | CONS_ITS ---
DATE OF SERVICE: 10/02/2021 REASON FOR CONSULTATION: Abdominal pain and elevated LFTs. HISTORY OF PRESENT ILLNESS: This has been obtained from the patient with a medical service representative, and from the medical record. The patient is a 56-year-old female who was in her usual state of health until the morning of admission. At that point, she developed the fairly rapid onset of epigastric and lower chest pain with associated nausea and vomiting. Prior to that, she had been feeling well and was eating normally. Due to the worsening pain, she came to the ER for evaluation and was admitted. Her workup revealed significantly elevated liver enzymes, although with a normal bilirubin and just minimally elevated alkaline phosphatase. The patient describes cholecystectomy about 10 years ago. She reports that the present symptoms were different than her gallbladder pain. She describes a similar episode of pain back in March when she was in the [place]. She describes having some x-rays and lab work which were nonrevealing as far she knows. In regard to this most recent episode, she is now feeling much better about 24 hours later without any particular therapeutic intervention. She is hungry. She has had no further vomiting. She denies any pain at the present time. Prior to yesterday, she denies any particular abdominal complaints. She has been eating normally and comfortably without any significant heartburn nor dysphagia. She denies any other abdominal pain, jaundice, nor weight loss. Her bowel movements have been normal without any sign of hematochezia nor melena. She does not use any aspirin, NSAIDs nor alcohol. She has not been on any new medication and denies any use of NSAIDs nor acetaminophen. She has been using some [id number] vitamin supplements over the last few months. She denies any ill contacts. No travel. She denies any use of IV drugs or other recreational drugs. MEDICATIONS: At home included amlodipine, vitamin D, omeprazole, and calcium carbonate. She takes vitamin B12 and some other vitamins as well. Her medications here in the hospital include pantoprazole, amlodipine, vitamin B12, morphine p.r.n., ondansetron p.r.n. PAST MEDICAL HISTORY: . Cholecystectomy. Appendectomy. Hypertension. Some reflux. She denies a history of heart disease, diabetes, stroke, lung disease, or kidney disease. SOCIAL HISTORY: She is . She does not smoke nor use any significant amounts of alcohol. FAMILY HISTORY: Negative for GI malignancy nor liver disease. REVIEW OF SYSTEMS: CONSTITUTIONAL: Prior to yesterday, she was feeling well with good energy and good appetite. SKIN: No rash, no pruritus. CARDIAC: No chest pain nor difficulty breathing. PULMONARY: No coughing or hemoptysis. GI: As above. URINARY: No dysuria, no hematuria. NEUROLOGIC: No headache or seizures. PHYSICAL EXAMINATION: GENERAL: Again, the patient is a pleasant, alert, comfortable-appearing female. SKIN: Warm and dry. Anicteric sclerae. NECK: Supple. CHEST: Clear. CARDIAC: Normal S1, S2. ABDOMEN: Soft, nondistended, nontender without organomegaly or mass. EXTREMITIES: Without edema. LABORATORIES: Initial white count was 12.4 with a repeat today of 6.8. Hemoglobin 12.4, platelets 160,000. PT 13.0 with INR 1.1. Normal chemistries and renal function. Her total bilirubin has been normal throughout the hospitalization. Her initial AST was 1012 and repeat was 464 with a repeat this morning of 343. Her initial ALT was 936 with a repeat of 762 and then a repeat of 663. Her alkaline phosphatase was 142 with a subsequent level of 139. Ammonia level was 60. Albumin was 4.3 yesterday and 3.9 today. Autoimmune serologies are pending. These include ALFRED, smooth muscle antibody, and mitochondrial antibody. Hepatitis B surface antigen was negative and hepatitis C antibody was negative. Hepatitis A IgM is pending. HIV was negative. COVID was negative. She has had multiple imaging studies including a CT scan of the abdomen that did not show any sign of liver disease other than some fatty liver. There is no focal lesion or biliary obstruction. Pancreas, spleen, GI tract appeared normal. There was no report of ascites. Abdominal ultrasound describes a common duct of only 8 mm, status post cholecystectomy. Liver appeared normal other than again a fatty liver. There is no ascites. The Doppler studies of the portal veins, hepatic artery, splenic vein and hepatic veins were all normal. She underwent an MRCP, which was negative for any sign of choledocholithiasis nor other signs of any biliary disease. The common bile duct did appear to be mildly dilated consistent with her post-cholecystectomy state, but again there was no sign of any obstructing lesion or stricture. IMPRESSION: Given the patient's clinical history of the acute onset of pain and significantly elevated liver enzymes with rapid resolution of the pain and improvement of the LFTs, I would think we are dealing with some sort of possibility of either having passed a small common duct stone or the other possibility being that of a sphincter of Oddi spasm or dyskinesia. I do not think this was related to any type of medication given the clinical history, the acute onset of pain, significantly elevated LFTs, and now significant and rapid resolution of the pain and improvement of the LFTs. At this point since she is feeling well, I do not think any other diagnostic intervention is required. At this time. I would advance her diet, followup labs in the morning and then if stable, she could be discharged by tomorrow as well. She should have a followup outpatient liver profile by early next week with her primary care physician. At this point, I would not recommend any other testing as an outpatient. However, if this episode recurs with pain and elevated LFTs I think the next step would be probably an ERCP for further evaluation and a potential empiric sphincterotomy if the exam is negative, so as to try to treat any component of sphincter of Oddi spasm or dyskinesia. This has been discussed with the patient in detail and she is comfortable with the plan. Thank you for the consultation. MD NATY Stone/LUDIN / [id number] BOO
[2021-10-03 04:00] VITALS: BP 150/63; PULSE 69; RESP 17; TEMP 36.8; O2SAT 95
[2021-10-03 04:00] LABS: Hepatitis A Antibody IgM 0.35 Index (0-0.79); ~Hepatitis A Antibody IgM Nonreactive (Nonreactive)
[2021-10-03 04:12] VITALS: BMI 34.7
[2021-10-03 06:00] VITALS: BMI 34.7
[2021-10-03] MEDS: Pantoprazole Sodium 40 MG/10 ML VIAL IVPUSH (06:27)
[2021-10-03 07:38] VITALS: BP 126/68; PULSE 59; RESP 15; TEMP 36.8; O2SAT 98
[2021-10-03 09:24] VITALS: BP 126/68; PULSE 81
[2021-10-03] MEDS: amLODIPine Besylate 5 MG TABLET PO (09:24)
[2021-10-03] MEDS: 0.9 % Sodium Chloride Flush 3 ML SYRINGE IVFLUSH (09:24)
[2021-10-03] MEDS: Cyanocobalamin (Vitamin B-12) 1,000 MCG TABLET 1000 MCG PO (09:26)
--- NOTE | 2021-10-03 09:53 | PM.DS ---
DS: Providers Provider Date of Service: 10/03/21 <NICKI Seaman - Last Filed: 10/03/21 10:01> Date of admission: 10/02/21 00:13 <NICKI Seaman - Last Filed: 10/03/21 10:01> Date of discharge: 10/03/21 <NICKI Seaman - Last Filed: 10/03/21 10:01> Primary care physician: NICKI Salvador <NICKI Seaman - Last Filed: 10/03/21 10:01> Consults: 10/01/21 19:04 Consult to Gastroenterology Routine Consulting Provider: Javi Napoles Reason for consultation: abdominal pain, elevated LFTs Has provider been notified: Yes <NICKI Seaman - Last Filed: 10/03/21 10:01> Attending physician on discharge: Ovidio Biswas <NICKI Seaman - Last Filed: 10/03/21 10:01> Discharging clinician: Veronique San <NICKI Seaman - Last Filed: 10/03/21 10:01> DS: Diagnosis Discharge Diagnosis (1) Abdominal pain: Status: Acute <NICKI Seaman - Last Filed: 10/03/21 10:01> (2) Elevated liver function tests: Status: Acute <NICKI Seaman - Last Filed: 10/03/21 10:01> DS: Summary Hospital Course Hospital Course: From H&P on day of admission 56-year-old female with past medical history of HTN, who presents to the hospital with complaints of severe abdominal pain.? Patient reports that her abdominal pain is localized to the epigastric region, radiating to her chest, 09/07, associated with nausea and vomiting, relieved by the pain medication received in the ED, worsened by p.o. intake, reports that the characteristics of the pain is hard to explain but is just severe pain.Patient denies any chest pain, no shortness of breath, no diarrhea, no urinary symptoms and no lower extremity edema.? No fever or chills. No significant abnormal vitals Labs are significant for of 12.4, AST of 421> 784> 1012, ALT of 304> 649> 936, ammonia of 60, alk-phos of 120s Troponin negative, UA negative, ostomy no feeding and salicylate levels negative,Hepatitis panel pending Abdominal pelvic CT shows enlarged uterus and probable fundal uterine fibroid with no significant abnormalities in the liver except fatty infiltration, cholecystectomy Abdominal ultrasound shows diffuse echogenic liver suggesting hepatic steatosis Case discussed with GI, patient possibly undergoing MRCP in AM Abdominal Pain/Elevatd LFTS. Due to elevated LFTs and abdominal pain patient was 7 to the hospital for further management. Abdominal ultrasound and CT scan of abdomen results as above. Doppler ultrasound of the abdomen showed no evidence of portal vein thrombosis or Budd-Chiari. MRCP mildly dilated CBD likely related to post cholecystectomy state. No intrahepatic biliary ductal dilatation. No choledocholithiasis or obstructive extra luminal lesions. Hepatitis screening panel and HIV were negative. Autoimmune markers were checked and are pending at the time of discharge. Her abdominal pain has completely resolved as well as nausea and vomiting. Her LFTs have trended down significantly. She was seen by GI who thought this may have represented a passed CBD stone versus sphincter of Oddi dyskinesia/spasm. Recommend repeat LFTs early next week. Her diet has been advanced and she is tolerating a regular diet without difficulty. She will be discharged home to follow-up with PCP. If she has recurrent episodes she will likely need ERCP for further evaluation. <NICKI Seaman - Last Filed: 10/03/21 10:01> Time Spent with Patient Time attestation: Total time spent providing and/or coordinating discharge services: <NICKI Seaman - Last Filed: 10/03/21 10:01> Discharge coordination time: Greater than 30 minutes <NICKI Seaman - Last Filed: 10/03/21 10:01> Quality: Stroke Does the patient have a stroke diagnosis?: No <NICKI Seaman Last Filed: 10/03/21 10:01> Physical Exam Vital Signs: Vital Signs: Last Vital Signs Temp 98.2 F 10/03/21 07:38 Pulse 81 10/03/21 09:24 Resp 15 10/03/21 07:38 BP 126/68 10/03/21 09:24 Pulse Ox 98 10/03/21 07:38 Body Mass Index 34.7 <NICKI Seaman - Last Filed: 10/03/21 10:01> Const: Nutritional Appearance: well nourished <NICKI Seaman - Last Filed: 10/03/21 10:01> Orientation/consciousness: patient oriented x3 <NICKI Seaman - Last Filed: 10/03/21 10:01> HENMT: Head: Yes normocephalic and Yes atraumatic <NICKI Seaman - Last Filed: 10/03/21 10:01> Eyes: Sclerae: sclerae normal <NICKI Seaman - Last Filed: 10/03/21 10:01> Resp: Effort & Inspection: normal respiratory effort and no respiratory distress <NICKI Seaman - Last Filed: 10/03/21 10:01> Cardio: Rate: regular rate <NICKI Seaman - Last Filed: 10/03/21 10:01> Rhythm: regular rhythm <NICKI Seaman - Last Filed: 10/03/21 10:01> GI: Palpation (GI): Soft to palpation and nontender <NICKI Seaman - Last Filed: 10/03/21 10:01> Neuro: General: patient oriented x3 <NICKI Seaman - Last Filed: 10/03/21 10:01> Cranial nerves: Yes CN's II-XII intact bilaterally and Yes Bilaterally intact EOM present <NICKI Seaman - Last Filed: 10/03/21 10:01> DS: Data Data Completed and Pending Labs on day of discharge: Laboratory Results - last 24 hr 10/01/21 10/02/21 10/02/21 17:32 12:11 17:52 Sodium 142 145 Potassium 3.8 3.6 Chloride 107 109 H Carbon Dioxide 29 29 Anion Gap 10 L 11 L BUN 8 L 9 Creatinine 0.75 0.80 Estim Creat Clear Calc 91.6 85.9 Estimated GFR > 60 > 60 Random Glucose 96 149 H Calcium 8.8 8.7 Total Bilirubin 0.7 0.7 AST 343 H 286 H ALT 663 H 625 H Alkaline Phosphatase 139 H 141 H Total Protein 6.6 6.8 Albumin 3.9 4.1 Hepatitis A IgM Ab Nonreactive 10/03/21 00:34 Sodium 143 Potassium 3.7 Chloride 107 Carbon Dioxide 29 Anion Gap 11 L BUN 9 Creatinine 0.79 Estim Creat Clear Calc 87.0 Estimated GFR > 60 Random Glucose 93 Calcium 8.7 Total Bilirubin 0.5 AST 212 H ALT 552 H Alkaline Phosphatase 136 H Total Protein 6.9 Albumin 4.1 Hepatitis A IgM Ab <NICKI Seaman - Last Filed: 10/03/21 10:01> Discharge Plan Discharge Patient Disposition: Home, Self-Care <NICKI Seaman - Last Filed: 10/03/21 10:01> Discharge Diagnosis: abdominal pain elevated lfts <NICKI Seaman - Last Filed: 10/03/21 10:01> abdominal pain elevated lfts <Ovidio Biswas MD - Last Filed: 10/03/21 11:14> Referrals: Valarie Patel PA [Primary Care Provider] - 1 Week <NICKI Seaman - Last Filed: 10/03/21 10:01> Discharge Medications: Continued cyanocobalamin (vitamin B-12) 1,000 mcg Tablet 1,000 mcg PO DAILY RF: 0 amlodipine 5 mg tablet 1 tab PO DAILY RF: 0 calcium carbonate [Calcium 600] 600 mg calcium (1,500 mg) Tablet 600 mg PO DAILY RF: 0 omeprazole 20 mg capsule,delayed release(DR/EC) 1 cap PO DAILY RF: 0 cholecalciferol (vitamin D3) [Vitamin D3] 25 mcg (1,000 unit) Tablet,Chewable 25 mcg PO DAILY RF: 0 <NICKI Seaman - Last Filed: 10/03/21 10:01> Discharge Orders: Discharge Order (Routine); Ordered 10/03/21 Ordered By: Veronique San <NICKI Seaman - Last Filed: 10/03/21 10:01> Activity on Discharge: As tolerated <NICKI Seaman - Last Filed: 10/03/21 10:01> As tolerated <Ovidio Biswas MD - Last Filed: 10/03/21 11:14> Stand Alone Forms: Patient Portal Discharge page, Work/School Release <NICKI Seaman - Last Filed: 10/03/21 10:01> Other Ambulatory Orders: Liver Panel (Routine) Timeframe: [id number] Facility: [facility] - Location: Laboratory Ordered By: Veronique San <NICKI Seaman - Last Filed: 10/03/21 10:01> Care Plan Goals: stay healthy and out of the hospital <NICKI Seaman - Last Filed: 10/03/21 10:01> Health Concerns: elevated liver enzymes abdominal pain likely realted to Passed CBD stone, Sphincter of Oddi dyskinesa/spasm <NICKI Seaman - Last Filed: 10/03/21 10:01> Plan of Treatment: Repeat liver labs on Wednesday Call to schedule follow-up appointment with your PCP <NICKI Seaman - Last Filed: 10/03/21 10:01> Assessment: 56-year-old female admitted with abdominal pain, nausea, vomiting and elevated liver enzymes now stable for discharge home I saw and examined and participate in garcia portion of E/M service, I agree with a/p, findings as documented by midlevel provider as above--. [place] <NICKI Seaman - Last Filed: 10/03/21 10:01> Discharge Date/Time: 10/03/21 10:54 <NICKI Seaman - Last Filed: 10/03/21 10:01>
--- NOTE | 2021-10-03 09:54 | MHC.CM.PN ---
Female 56 DX elevated LFTs The patient is discharged today. She had a GI consult 10/02/21. Her LFTs have improoved. She is discharged to home, no services. Patient will follow up out patient. Family is providing transportation home.
[2021-10-03 14:21] LABS: Anti Nuclear Antibody Screen NEGATIVE (NEGATIVE)
[2021-10-06 12:46] LABS: Smooth Muscle Antibody <20 U (<20)
[2021-10-07 14:37] LABS: Mitochondrial Antibodies NEGATIVE (NEGATIVE)
== END 2021-10-03 10:54 | disposition home or self-care (01) ==
LOC: HO.ED 21:03 → HO.EDOVER 10-02 00:26 → HO.IMC 10-03 03:44
PROVIDERS: Internal Medicine; Admitting Provider Internal Medicine; Emergency Provider Emergency Medicine; PCP Physician Assistant; Visit Provider Physician Assistant Medical
DX: K83.4 Spasm of sphincter of Oddi (principal); K76.0 Fatty (change of) liver, not elsewhere classified; K80.50 Calculus of bile duct without cholangitis or cholecystitis without obstruction; R79.89 Other specified abnormal findings of blood chemistry; D25.9 Leiomyoma of uterus, unspecified; Z20.822 Contact with and (suspected) exposure to COVID-19; Z79.899 Other long term (current) drug therapy
CPT/HCPCS: 36415; 71045; 74177; 74181; 76705; 80048; 80053; 80076; 80143; 80179; 81003; 82140; 83605; 83690; 83735; 84484; 85025; 85610; 85730; 86038; 86039; 86255; 86256; 86704; 86706; 86709; 86803; 87340; 87389; 87635; 93005; 93975; 96361; 96374; 96375; 99219; 99285; J2270; J2405; Q9967